=== PATIENT | female | born 1985 | race Caucasian/White ===

== ENCOUNTER 2017-10-06 08:00 | Inpatient (IN) ==
[2017-10-06] MEDS ORDERED: Famotidine 20 MG/2 ML VIAL IVP PRN (09:28)
[2017-10-06] MEDS ORDERED: Ondansetron 4 MG/2 ML VIAL IVP PRN (09:28)
[2017-10-06] MEDS ORDERED: Metoclopramide 10 MG/2 ML VIAL IVP PRN (09:28)
[2017-10-06] MEDS ORDERED: Ringers Solution, Lactated 1,000 ML IVC SCH (09:30)
[2017-10-06] MEDS ORDERED: miSOPROStol 25 MCG TABLET PO PRN (09:36)
--- NOTE | 2017-10-06 09:43 | Anesthesia Evaluation PreOp ---
Date of Encounter: 10/06/17 Time of Encounter: 09:41 - Past History Planned Operation: sunil Cardiac History: Denies any Significant Hx Pulmonary History: Smoker (1/2 pack per day) EMERGENCY SERVICES PROFESSIONAL History: Denies Any Significant HX Other Medical History: Denies Any Significant HX, Other (history of drug abuse, clean for 3 years) Anesthesia History: No Prior Anesthetic Complications, Past Anesthesia : Yes () Alcohol Use: none Drug use: other Medications and Allergies Buprenorphine HCl/Naloxone HCl [Suboxone 8 mg-2 mg Sl Film] 12 mg SL DAILY 11/13 [History] Vit/FA 1 tab PO DAILY 11/14/14 [History] 3 Allergy/AdvReac Type Severity Reaction Status Date / Time No Known Allergies Allergy Verified 11/13/14 14:23 - Meds/Allergy Pre-op Review Medications Reviewed: Yes Allergies Reviewed: Yes Beta Blockers on Current Med List: No Anesthesia Exam O2 Sat Height 1.63 m Weight 118.5 kg Height: 64 Weight: 261 - HEENT Pupil (Motor): Pupils equal Mallampati: I Teeth: Normal Oral Opening: Greater than 3 - EMERGENCY SERVICES PROFESSIONAL LOC: Oriented EMERGENCY SERVICES PROFESSIONAL Motor: Normal RUE, Normal LUE, Normal RLE, Normal LLE, Normal Face EMERGENCY SERVICES PROFESSIONAL Sensory: Normal: RUE, LUE, RLE, LLE, Face - Cardiac Rhythm: Regular Murmur: None JVD: No Carotid Bruit: No - Pulmonary Breath Sounds: bilateral Clear Respiratory Effort: Symmetrical Anesthesia Assess/Plan ASA Score: 2 Modified [place] Scale for Level of Consciousness: Cooperative, oriented, and tranquil Anesthetic Plan: Regional Monitoring Plan: Standard Monitors
[2017-10-06] MEDS ORDERED: Penicillin G Potassium 5,000,000 UNIT in 0.9 % Sodium Chloride Mini Bag 100 ML IVPB ONE (09:59)
--- NOTE | 2017-10-06 10:10 | OB/GYN History & Physical ---
Date of Encounter: 10/06/17 Time of Encounter: 10:06 Assessment and Plan (1) 39 weeks gestation of Current visit: Yes Status: Acute Pt at 39 weeks EGA presents for induction of labor. Plan Cytotec and expect . (2) Narcotic addiction Current visit: Yes Status: Acute Will cont. Suboxone. (3) Hepatitis C Current visit: No Status: Chronic Qualifiers: Viral hepatitis chronicity: chronic Hepatic coma status: without hepatic coma Qualified Code(s): B18.2 - Chronic viral hepatitis C History of Present Illness Chief complaint: Here for induction HPI: Ms. Mcmanus is a 32 year old female female presents at 39 weeks EGA for induction of labor. Her has been complicated by narcotics addiction and she is on Suboxone. She also smokes. Past Med Surg Social Fam HX - Past Medical History Source: patient, old records reviewed Medical history: non-contributory, other Additional medical history: Polystitic ovary syndrome, anxiety, depression, previous suicide atempts, narcotics addiction Psychiatric history: anxiety, depression, prior suicide attempt, previous psychiatric hospitalization - Past Surgical History Surgical History: cholecystectomy, other Additional surgical history: U. hernia repair - Social History Smoking Status: Current every day smoker Packs per day: 1/2 Smokeless Tobacco Status: No Alcohol use: none Drug use: other - Family History Mother Living Status: Still Living Hx Family Cardiac Disorders: Yes Hx Family GI Disorders: Yes (Diverticulosis) Father Living Status: Cause of : 2008 Hx Family Cardiac Disorders: Yes (HTN) Hx Family Cancer: Yes Obstetrical History - Pregnancies : 3 Medications and Allergies Buprenorphine HCl/Naloxone HCl [Suboxone 8 mg-2 mg Sl Film] 12 mg SL DAILY 11/13 [History] Vit/FA 1 tab PO DAILY 11/14/14 [History] 3 Allergy/AdvReac Type Severity Reaction Status Date / Time No Known Allergies Allergy Verified 11/13/14 14:23 Exam - Constitutional Constitutional: well nourished, no acute distress - HEENT HEENT: EOMI, PERRL - Neck Neck exam: full ROM - Lungs Respiratory exam: CTAB - Cardiovascular Cardiovascular exam: RRR - Abdomen Abdomen: Present: gravid Results All other labs normal. - VTE Reasons for not Prescribing Prophylaxis: Treatment not Indicated - Low risk for VTE
[2017-10-06] MEDS ORDERED: Lidocaine -MPF 1% 2 ML VIAL ONE (10:26)
[2017-10-06 11:11] LABS: Basophils % 0.3 %; Eosinophils # 0.2 K/mcL (0.0-0.6); Eosinophils % 1.5 %; Hematocrit 38.4 % (35.3-44.9); Immature Granulocytes % 0.4 % (0-4); Lymphocytes # 3.7 K/mcL (0.6-4.6); Lymphocytes % 29.3 %; Mean Corpuscular HGB Conc 33.9 g/dL (31.6-35.5); Mean Corpuscular Hemoglobin 29.5 pg (28.0-33.3); Mean Corpuscular Volume 87.1 fL (83.0-100.0); Mean Platelet Volume 10.3 fL (9.4-12.4); Monocytes # 0.6 K/mcL (0.0-1.3); Monocytes % 4.5 %; Neutrophils # 8.1 K/mcL (1.6-8.9); Platelet Count 275 K/mcL (140-400); Red Blood Count 4.41 M/mcL (3.82-4.97); Red Cell Distribution Width 13.6 % (11.5-14.5)
[2017-10-06 11:20] LABS: Amphetamine Screen,Urine Negative ng/mL (Cutoff=1000); Barbiturate Screen,Urine Negative ng/mL (Cutoff=200); Benzodiazepines Screen,Urine Negative ng/mL (Cutoff=200); Cannabinoid Screen,Urine Negative ng/mL (Cutoff = 50); Cocaine Screen,Urine Negative ng/mL (Cutoff= 300); Opiate Screen,Urine Negative ng/mL (Cutoff=300); Phencyclidine Screen,Urine Negative ng/mL (Cutoff=25)
[2017-10-06] MEDS ORDERED: Penicillin G Potassium 2,500,000 UNIT in 0.9 % Sodium Chloride 100 ML IVPB SCH (14:00)
[2017-10-06] MEDS: Penicillin G Potassium 2,500,000 UNIT in 0.9 % Sodium Chloride 100 ML IVPB SCH ×2 (15:02→19:08)
[2017-10-06] MEDS ORDERED: *HR* FentaNYL (PF) 100 MCG/2 ML VIAL ONE ×2 (16:28→16:30)
[2017-10-06] MEDS ORDERED: *HR* Ropivacaine/PF 0.2% 20 ML VIAL ONE (16:28)
[2017-10-06] MEDS ORDERED: Epidural Premix (fent/bupiv) 110 ML EP ONE (16:28)
[2017-10-06] MEDS ORDERED: Lidocaine -MPF 1% 5 ML AMPUL ONE (16:30)
[2017-10-06] MEDS ORDERED: Bupivacaine-MPF 0.25% 10 ML VIAL ONE (16:30)
[2017-10-06] MEDS ORDERED: *HR* Ropivacaine/PF 0.2% 20 ML VIAL EP ONE (16:57)
[2017-10-06] MEDS ORDERED: EPHEDrine 50 MG/ML VIAL IVP PRN (16:57)
[2017-10-06] MEDS ORDERED: *HR* FentaNYL (PF) 100 MCG/2 ML VIAL EP ONE (16:57)
[2017-10-06] MEDS ORDERED: Epidural Premix (fent/bupiv) 110 ML EP SCH (17:00)
--- NOTE | 2017-10-06 17:01 | Anesthesia Procedures ---
Date of Encounter: 10/06/17 Time of Encounter: 16:59 Procedures: Anesthesia - Epidural/Spinal Patient ID/Chart reviewed: Yes Patient examined: Yes OB Eval: : 3 OB Eval: Hx Para: 1 OB Eval: Contractions: Non-stressed pattern Site Prep: Aseptic Technique, 0.5% Chlorhexidine/Alcohol Patient position: upright Local Anesthetic: Lidocaine 1% Amount of Local Anesthetic used: 3 Touhy Needle Gauge: 18 Touhy Needle Depth (cm): 7 Catheter Depth at Skin (cm): 14 Test Dose (1.5% Lido + Epi): Volume given (mls): 3 Test Dose Result: Negative Loading Dose: Fentanyl (mcg): 100 Loading Dose: Other: ropivicaine 0.2% 5cc Loading Dose Administered: Thru Touhy Needle Infusion Med: 0.125% Bupivacaine w/ 2 mcg/ml Fentanyl Infusion Rate (mls/hr): [address]: Tegaderm Interspace Used: L3-L4 Loss of Resistance (IGOR): Yes Blood: No CSF: No Paresthesia: No
[2017-10-06] MEDS ORDERED: Oxytocin 20 units/ LR 1000 mL 20 UNIT/1,000 ML BAG IVC SCH ×2 (19:00→23:01)
--- NOTE | 2017-10-06 20:05 | OB/GYN Procedure Note ---
Delivery - Delivery Date: 10/06/17 Provider: Eleazar Garcia Intrapartum events: none Delivery induction: misoprostol Delivery monitor: internal FHT, internal uterine Anesthesia: epidural Quantitated Blood Loss: 100 - (s) A Delivery Date: 10/06/17 Infant Delivery Time: 19:48 Presentation: vertex Position: LUIS Route of delivery: Gender: Male Viability: Viable Pounds: 8 Ounces: 4 at 1 minute: 9 at 5 mins: 9 Placenta: spontaneous Cord: 3 umbilical vessels - Repair Episiotomy: none Laceration Description: None - Complications Delivery complications: none - Disposition Mom disposition: stable in LDR Constantia disposition: stable in LDR - Comments Comments: Pt s/p of liveborn male infant without complications. No laceration. Spontaneous delivery of normal placenta with 3 v.c. Mother and recovered in LDR.
[2017-10-06] MEDS ORDERED: Acetaminophen 325 MG TABLET PO PRN (23:01)
[2017-10-06] MEDS ORDERED: Measles/Mumps/Rubella Vacc 0.5 ML VIAL SQ PRN (23:01)
[2017-10-06] MEDS ORDERED: Rho Immune Globulin 1,500 UNIT SYRINGE IM PRN (23:01)
[2017-10-07 05:05] LABS: Basophils % 0.3 %; Eosinophils # 0.2 K/mcL (0.0-0.6); Eosinophils % 1.4 %; Hematocrit 34.3 % (35.3-44.9); Hemoglobin 11.8 g/dL (11.5-15.4); Immature Granulocytes % 0.6 % (0-4); Lymphocytes # 3.4 K/mcL (0.6-4.6); Lymphocytes % 25.3 %; Mean Corpuscular HGB Conc 34.4 g/dL (31.6-35.5); Mean Corpuscular Hemoglobin 29.8 pg (28.0-33.3); Mean Corpuscular Volume 86.6 fL (83.0-100.0); Mean Platelet Volume 11.2 fL (9.4-12.4); Monocytes # 0.6 K/mcL (0.0-1.3); Monocytes % 4.2 %; Neutrophils # 9.3 K/mcL (1.6-8.9); Platelet Count 243 K/mcL (140-400); Red Blood Count 3.96 M/mcL (3.82-4.97); Red Cell Distribution Width 13.5 % (11.5-14.5); Segmented Neutrophils % 68.2 %
--- NOTE | 2017-10-07 07:48 | OB/GYN Progress Note ---
Date of Encounter: 10/07/17 Time of Encounter: 07:45 - Assessment and Plan (1) Status post vaginal delivery Current Visit: Yes Status: Acute (2) Family planning advice Current Visit: Yes Status: Acute Patient will be kept nothing by mouth for bilateral tubal ligation this morning Subjective - Subjective Interval history: Patient states doing well still wanting a tubal ligation minimal pain minimal bleeding. The risks and benefits of the tubal ligation was explained to patient with failure rate of 5-8 per thousand with increased risk of ectopic if was to occur Objective - Latest Vital Signs Latest vital signs: Vital Signs Temp Pulse Resp BP Pulse Ox 10/07/17 07:38 97.6 F 64 18 118/73 10/07/17 06:41 97.8 F 57 14 128/63 97 10/07/17 00:30 97.9 F 67 14 128/73 99 10/06/17 23:30 98 F 61 14 111/66 98 10/06/17 22:30 98.1 F 66 14 101/59 98 Intake and Output 10/06/17 10/06/17 10/07/17 15:59 23:59 07:59 Intake Total 100 / 100 Output Total 400 / 400 Balance -300 / -300 Intake: IV Fluids 100 / 100 Pfizerpen 2,500,000 UNIT In 0.9 100 / 100 % Sodium Chloride 100 ML @ 100 mls/hr IVPB Q4H [facility] Rx#: [id number] Output: Urine 400 / 400 Other: Weight 118.5 kg 116 kg - Exam Lungs: bilateral: normal Chest: Normal S1, Normal S2 Extremities: Present: normal Abdomen: Present: normal appearance, other (Mildly obese) Uterus: Present: normal, firm Uterus Position: 2 Fingers Below Umbilicus - Labs Labs: Laboratory Results - last 24 hr 10/06/17 10/06/17 10/07/17 09:32 10:54 04:01 WBC 12.6 H 13.6 H RBC 4.41 3.96 Hgb 13.0 11.8 Hct 38.4 34.3 L MCV 87.1 86.6 MCH 29.5 29.8 MCHC 33.9 34.4 RDW 13.6 13.5 Plt Count 275 243 MPV 10.3 11.2 Immature Gran % 0.4 0.6 Seg Neutrophils % 64.0 68.2 Lymphocytes % 29.3 25.3 Monocytes % 4.5 4.2 Eosinophils % 1.5 1.4 Basophils % 0.3 0.3 Neutrophils # 8.1 9.3 H Lymphocytes # 3.7 3.4 Monocytes # 0.6 0.6 Eosinophils # 0.2 0.2 Basophils # 0.0 0.0 Urine Opiates Screen Negative Ur Barbiturates Screen Negative Ur Phencyclidine Scrn Negative Ur Amphetamines Screen Negative U Benzodiazepines Scrn Negative Urine Cocaine Screen Negative U Marijuana (THC) Screen Negative Ur Drug Screen Interp See Below
[2017-10-07] MEDS ORDERED: Prenatal Vit/FA 1 EACH TABLET PO SCH (09:00)
[2017-10-07] MEDS ORDERED: Ringers Solution, Lactated 1,000 ML ONE (11:45)
--- NOTE | 2017-10-07 11:57 | Anesthesia Evaluation PreOp ---
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: Denies Any Significant HX Other Medical History: Denies Any Significant HX Anesthesia History: No Prior Anesthetic Complications, Past Anesthesia Alcohol Use: none Drug use: other Medications and Allergies Buprenorphine HCl/Naloxone HCl [Suboxone 8 mg-2 mg Sl Film] 12 mg SL DAILY 11/13 [History] Vit/FA 1 tab PO DAILY 11/14/14 [History] 3 Allergy/AdvReac Type Severity Reaction Status Date / Time No Known Allergies Allergy Verified 11/13/14 14:23 - Meds/Allergy Pre-op Review Medications Reviewed: Yes Allergies Reviewed: Yes Beta Blockers on Current Med List: No Anesthesia Results - Labs 10/07/17 04:01 Anesthesia Exam Vital Signs/O2 Sat, Most Current Temp Pulse Resp BP Pulse Ox 97.6 F 64 18 118/73 97 10/07/17 07:38 10/07/17 07:38 10/07/17 07:38 10/07/17 07:38 10/07/17 06:41 Height: 5'4''/1.63m Weight: 255 lbs/116 kg NPO (# of Hours): 8 Pain Scale: 0 Pain Scale Used: Numeric (1 - 10) - HEENT Pupil (Motor): EOMI Mallampati: II Teeth: Normal Oral Opening: Greater than 3 - JAI [employer] PLAYER LOC: Oriented JAI [employer] PLAYER Motor: Normal RUE, Normal LUE, Normal RLE, Normal LLE, Normal Face [employer] Sensory: Normal: RUE, LUE, RLE, LLE, Face - Cardiac Rhythm: Regular Murmur: None - Pulmonary Breath Sounds: bilateral Clear Respiratory Effort: Symmetrical Anesthesia Assess/Plan ASA Score: 2 Modified [place] Scale for Level of Consciousness: Cooperative, oriented, and tranquil Anesthetic Plan: General Monitoring Plan: Standard Monitors Recovery Plan: PACU
[2017-10-07] MEDS ORDERED: *HR* HYDROmorphone 2 MG TABLET PO PRN (12:33)
[2017-10-07] MEDS ORDERED: *HR* OxyCODONE Immed Rel 5 MG TABLET PO PRN (12:33)
[2017-10-07] MEDS ORDERED: *HR* FentaNYL (PF) 100 MCG/2 ML VIAL ONE (12:33)
[2017-10-07] MEDS ORDERED: *HR* Promethazine 25 MG/ML VIAL IVP PRN (12:33)
[2017-10-07] MEDS ORDERED: *HR* Midazolam HCl 2 MG/2 ML VIAL ONE ×2 (12:33)
[2017-10-07] MEDS ORDERED: *HR* Propofol 200 MG/20 ML VIAL IVP ONE ×2 (12:33)
[2017-10-07] MEDS ORDERED: Acetaminophen IV 1,000 MG/100 ML INFUS..BTL IVPB ONE (12:33)
[2017-10-07] MEDS ORDERED: Ondansetron 4 MG/2 ML VIAL IVP PRN ×2 (12:33→13:04)
[2017-10-07] MEDS ORDERED: Lidocaine -MPF 2% 5 ML VIAL ONE (12:33)
[2017-10-07] MEDS ORDERED: Ondansetron 4 MG/2 ML VIAL ONE (12:47)
[2017-10-07] MEDS ORDERED: Ketorolac 30 MG/ML VIAL ONE (12:48)
--- NOTE | 2017-10-07 13:05 | Operative Note ---
Date of procedure: 10/07/17 Pre-op diagnosis: Status post vaginal delivery, desires sterilization Post-op diagnosis: same (With umbilical obstruction) Procedure: Attempted bilateral partial salpingectomy with inability to get through the peritoneum due to foreign body Complications: Umbilical obstruction from what we eventually found out to be graft material attached to the peritoneum Anesthesia: DOMINGA Surgeon: Ever Burton Was there an secretary administrative assistant present: No Estimated blood loss (cc): 30 Specimen: None Condition: stable Disposition: other (Labor and delivery recovery room) Procedure in Detail: Patient is a 32-year-old female status post vaginal delivery who desired tubal ligation patient states she has multiple children and does not want to have anymore patient has a past history of IV drug use and is a very difficult stick just wanted the tubal done while in the hospital we did discuss the risks and benefits of the tubal with a failure rate of 5-8 per thousand with increased risk of ectopic if was to occur. We did offer her a laparoscopic tubal due to her size but she wanted us to attempt it well and hospital. Procedure: Patient was taken the operating room where general anesthesia was found be adequate. She was placed in the dorsal supine position prepped and draped in usual fashion. Timeout was then obtained. A small infraumbilical incision was made carried down to the underlying tissue to the fascia was identified. The fascia was grasped tented up and entered sharply. This was extended laterally with the Cisneros scissors 2 [place] retractors placed through the incision and the parietal peritoneum was identified. As we grasped the peritoneum we noted that it would not tent up like usual after palpating this multiple times it felt heart to palpation and I could not identify what the problem was. We attempted multiple times there was something hard around the peritoneum and we did some investigating and identified in her old records that patient had had a umbilical hernia repair with graft which was not mention to us prior to the surgery. At this point no further attempt was made to try and get through this location and the procedure was terminated the fascia was then closed using 0 Vicryl in a running stitch and the skin was closed using a 4-0 Vicryl in subcuticular manner. All needles lap sponge counts were correct 3 she did receive preoperative antibiotics. Patient will need to come back in 6 weeks for a laparoscopic tubal ligation. Patient was taken back to the floor to recover and will continue on her home Suboxone.
--- NOTE | 2017-10-07 14:08 | Anesthesia Evaluation Post Op ---
Date of Encounter: 10/07/17 Time of Encounter: 14:07 - Vital Signs Vital Signs: Vital Signs/O2 Sat, Most Current Temp Pulse Resp BP Pulse Ox 98 F 56 16 96/50 97 10/07/17 13:47 10/07/17 13:47 10/07/17 13:47 10/07/17 13:47 10/07/17 13:47 - Lungs Lungs: Clear Ascult./Percussion - Airway Airway: Non-obstructed - Cardiovascular Regular Rate - Mental Status Mental Status: Alert & Oriented, Answers Appropriately - Pain Pain Scale: 3 Pain Scale used: [place] (Faces) - Nausea Vomiting Nausea Vomiting: Not Present - Hydration Hydration: NPO, Has not voided - Discharge PostOp Status: Transfer Patient to floor
[2017-10-07] MEDS ORDERED: Rho Immune Globulin 1,500 UNIT SYRINGE IM ONE (17:50)
[2017-10-07] MEDS: Acetaminophen 325 MG TABLET PO PRN (18:24)
[2017-10-08 07:53] VITALS: BP 123/70
--- NOTE | 2017-10-08 08:13 | Discharge Summary ---
Date of Encounter: 10/08/17 Time of Encounter: 08:10 - Discharge Diagnosis (1) Status post vaginal delivery Priority: Primary Status: Acute Comments: Continue routine care discharge home today follow up with Dr. Garcia in 4-6 weeks - Discharge Medications Prescriptions: Ibuprofen [Motrin] 600 mg PO Q6HR PRN #60 tab PRN Reason: pain Home Medications: Buprenorphine HCl/Naloxone HCl [Suboxone 8 mg-2 mg Sl Film] 12 mg SL DAILY 11/13 [History] Vit/FA 1 tab PO DAILY 11/14/14 [History] Ibuprofen [Motrin] 600 mg PO Q6HR PRN #60 tab 10/08/17 [Rx] Allergies/Adverse Reactions: 3 Allergy/AdvReac Type Severity Reaction Status Date / Time No Known Allergies Allergy Verified 11/13/14 14:23 Data Procedures and tests throughout hospitalization: Laboratory Tests 10/06/17 10/06/17 10/06/17 09:32 10:54 21:18 WBC 12.6 H RBC 4.41 Hgb 13.0 Hct 38.4 MCV 87.1 MCH 29.5 MCHC 33.9 RDW 13.6 Plt Count 275 MPV 10.3 Immature Gran % 0.4 Seg Neutrophils % 64.0 Lymphocytes % 29.3 Monocytes % 4.5 Eosinophils % 1.5 Basophils % 0.3 Neutrophils # 8.1 Lymphocytes # 3.7 Monocytes # 0.6 Eosinophils # 0.2 Basophils # 0.0 Urine Opiates Screen Negative Ur Barbiturates Screen Negative Ur Phencyclidine Scrn Negative Ur Amphetamines Screen Negative U Benzodiazepines Scrn Negative Urine Cocaine Screen Negative U Marijuana (THC) Screen Negative Ur Drug Screen Interp See Below Screen NEGATIVE Baby's Blood Type O RH POSITIVE Mother's Blood Type O RH NEGATIVE Rhogam Indicated YES Rhogam Req for Mother 1 10/07/17 04:01 WBC 13.6 H RBC 3.96 Hgb 11.8 Hct 34.3 L MCV 86.6 MCH 29.8 MCHC 34.4 RDW 13.5 Plt Count 243 MPV 11.2 Immature Gran % 0.6 Seg Neutrophils % 68.2 Lymphocytes % 25.3 Monocytes % 4.2 Eosinophils % 1.4 Basophils % 0.3 Neutrophils # 9.3 H Lymphocytes # 3.4 Monocytes # 0.6 Eosinophils # 0.2 Basophils # 0.0 Urine Opiates Screen Ur Barbiturates Screen Ur Phencyclidine Scrn Ur Amphetamines Screen U Benzodiazepines Scrn Urine Cocaine Screen U Marijuana (THC) Screen Ur Drug Screen Interp Screen Baby's Blood Type Mother's Blood Type Rhogam Indicated Rhogam Req for Mother Labs on day of discharge: Labs from last 24 hours 10/06/17 21:18 Screen NEGATIVE Baby's Blood Type O RH POSITIVE Mother's Blood Type O RH NEGATIVE Rhogam Indicated YES Rhogam Req for Mother 1 Date of admission: 10/06/17 08:30 Primary care physician: Roslyn Mendoza Consults: 10/06/17 23:01 Consult to Financial Reporting Advisor [CONS] Routine Reason for SW Consult: narcotics addiction Discharging clinician: Gricel Garrett Anticipated date of discharge: 10/08/17 - Patient Status Disposition: Home, Self-Care Condition: Good Functional capacity at discharge: independent ambulation - Discharge Instructions Follow Up With: Yessy Gongora CNP [Primary Care Provider] - Eleazar Garcia MD [Partnered Physician] - - Diet and Activity Activity: increase activity as tolerated Diet: regular diet Hospital Course Delivery: Episiotomy: none Laceration: none Other procedures: none complications: none Discharge diagnosis: IUP at term delivered baby: male (bottle feeding) Time Attestation: Total time spent providing and/or coordinating discharge services: Time Spent: Less than 30 minutes Exam - Constitutional Vitals: Temp Pulse Resp BP Pulse Ox 97.7 F 65 16 123/70 98 10/08/17 07:52 10/08/17 07:52 10/08/17 07:52 10/08/17 07:52 10/08/17 07:52 General appearance IM: A&O X 3, pleasant, answers questions appropriately - Respiratory Respiratory exam: Present: CTAB - Cardiovascular Cardiovascular exam IM: Present: RRR, +S1, +S2 - GI/Abdominal GI/Abdominal exam IM: normal bowel sounds - Uterine Tone: Firm Uterus Position: 1 Finger Below Umbilicus, Midline - Extremities Exam Extremities exam IM: Present: full ROM, normal capillary refill, normal inspection - Neurological Exam Neurological exam: alert, oriented X3, reflexes normal
[2017-10-08] MEDS: Acetaminophen 325 MG TABLET PO PRN (08:35)
[2017-10-08] MEDS ORDERED: BUPRENORPHINE SL SCH (09:00)
[2017-10-08] MEDS ORDERED: NALOXONE SL SCH (09:00)
[2017-10-08] MEDS ORDERED: Prenatal Vit/FA 1 EACH TABLET PO SCH (09:00)
== END 2017-10-08 11:30 | disposition home or self-care (01) | DRG 560 ==
LOC: 1NENULAB 08:30 → 1NENUOBS 22:39
PROVIDERS: ADMIT Obstetrics & Gynecology; ATTEND Obstetrics & Gynecology

== ENCOUNTER 2018-10-28 14:00 | Inpatient (IN) ==
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
[2018-10-28 14:43] LABS: Bilirubin,Urine Negative (Negative); Blood,Urine Negative (Negative); Clarity,Urine Turbid (Clear); Color,Urine Dark Yellow (Yellow); Glucose,Urine (UA) Normal (Normal); Ketones,Urine Negative (Negative); Leukocyte Esterase,Urine Moderate (Negative); Nitrite,Urine Negative (Negative); PH,Urine 5.5 pH Units (5.0-8.0); Protein,Urine Trace mg/dL (Neg-Trace); Specific Gravity,Urine 1.026 (1.010-1.025); Urobilinogen,Urine Normal (Normal)
[2018-10-28 14:47] LABS: Bacteria,Urine Many per hpf (None-Few); RBC,Urine 0-3 per hpf (0-3); Squamous Epithelial Cell,Urine Many per lpf (None-Few); WBC,Urine 30-50 per hpf (0-3)
--- NOTE | 2018-10-28 14:51 | Emergency Department Note ---
Disposition Clinical Impression: Suicidal ideation Disposition: Still a Patient Forms: ED Satisfaction Letter Time of Disposition: 14:51 General Adult HPI - General Chief complaint: ED Psychiatric Symptoms Stated complaint: SI Time Seen by Provider: 10/28/18 14:15 Source: patient Mode of arrival: ambulatory Limitations: no limitations Nursing Notes Reviewed: Yes Vital Signs Reviewed: Yes - History of Present Illness HPI Narrative: Attestation note: Patient was seen with the emergency medicine resident/nurse practitioner/physician traffic assistant/transitional resident/medical student: Dr. BRENT LAYNE. I was present for the significant portions of the performance and interpretation of procedures and EKGs. I have personally performed a face to face evaluation on this patient. I have reviewed and agree with history and physical examination patient management and disposition. Female history of depression and suicidal ideations by EMS for suicidal gesture patient started taking a vacuum cord and strangulate herself which was unsuccessful there is no external ligature henao noted physical examination is benign patient had a pink slip executed and is in chart patient will undergo medical clearance and evaluation by mental health services. Disposition pending Pain Scale: 0 - Related Data Home Medications Medication Instructions Recorded Confirmed Buprenorphine HCl/Naloxone HCl 12 mg SL DAILY 11/13/14 10/06/17 [Suboxone 8 mg-2 mg Sl Film] Vit/FA 1 tab PO DAILY 11/14/14 10/06/17 Previous Rx's Medication Instructions Recorded Ibuprofen [Motrin] 600 mg PO Q6HR PRN #60 tab 10/08/17 Allergies Allergy/AdvReac Type Severity Reaction Status Date / Time Amoxicillin AdvReac Hives Verified 10/28/18 14:02 Past Medical History - Past Medical History Medical history: Reports: non-contributory, other Surgical history: Reports: cholecystectomy, other Psychiatric history: Reports: anxiety, depression, prior suicide attempt, previous psychiatric hospitalization [employer] INS[employer] history: Reports: polycystic ovary syndrome - Social History Smoking Status: Current every day smoker Smokeless Tobacco Status: No Alcohol use: Reports: none Drug use: Reports: other Physical Exam - General Limitations: no limitations General appearance: alert, in no apparent distress Course Vital Signs Temperature 98.0 F 10/28/18 14:00 Pulse Rate 94 10/28/18 14:00 Respiratory Rate 16 10/28/18 14:00 Blood Pressure 164/113 10/28/18 14:00 O2 Sat by Pulse Oximetry 94 10/28/18 14:00 Temperature 98.0 F 10/28/18 14:08 Pulse Rate 94 10/28/18 14:08 Respiratory Rate 16 10/28/18 14:08 Blood Pressure 164/113 10/28/18 14:08 O2 Sat by Pulse Oximetry 94 10/28/18 14:08 Oxygen Delivery Oxygen Delivery Room Air
[2018-10-28 15:35] LABS: Acetaminophen < 10 mcg/mL (10-20); BUN/Creatinine Ratio 11 (6-26); Blood Urea Nitrogen 10 mg/dL (6-20); Calcium 8.9 mg/dL (8.6-10.3); Carbon Dioxide 22 mEq/L (23-29); Chloride 106 mEq/L (98-107); Ethanol < 10 mg/dL (Less than 10); Glucose 129 mg/dL (70-105); Osmolality,Calculated 281 (280-300); Potassium 4.5 mEq/L (3.5-5.1); Salicylate < 2.5 mg/dL (15.0-30.0); Sodium 135 mEq/L (136-145); eGFR For African Americans > 60 (> 60); eGFR For Non-African Americans > 60 (> 60)
[2018-10-28 16:13] LABS: Basophils # 0.1 K/mcL (0.0-0.2); Basophils % 0.5 %; Eosinophils # 0.4 K/mcL (0.0-0.6); Eosinophils % 3.5 %; Hematocrit 44.9 % (35.3-44.9); Hemoglobin 15.1 g/dL (11.5-15.4); Immature Granulocytes % 1.1 % (0-4); Lymphocytes # 2.9 K/mcL (0.6-4.6); Lymphocytes % 28.7 %; Mean Corpuscular HGB Conc 33.6 g/dL (31.6-35.5); Mean Corpuscular Hemoglobin 29.5 pg (28.0-33.3); Mean Corpuscular Volume 87.7 fL (83.0-100.0); Mean Platelet Volume 9.9 fL (9.4-12.4); Monocytes # 0.4 K/mcL (0.0-1.3); Monocytes % 4.1 %; Neutrophils # 6.2 K/mcL (1.6-8.9); Nucleated Red Blood Cells 0.3 /100 WBC (0); Platelet Count 261 K/mcL (140-400); Red Blood Count 5.12 M/mcL (3.82-4.97); Red Cell Distribution Width 14.2 % (11.5-14.5); Segmented Neutrophils % 62.1 %
[2018-10-28 17:42] LABS: Amphetamine Screen,Urine Negative ng/mL (Cutoff=1000); Barbiturate Screen,Urine Negative ng/mL (Cutoff=200); Benzodiazepines Screen,Urine Negative ng/mL (Cutoff=200); Cannabinoid Screen,Urine Negative ng/mL (Cutoff = 50); Cocaine Screen,Urine Negative ng/mL (Cutoff= 300); Opiate Screen,Urine Negative ng/mL (Cutoff=300); Phencyclidine Screen,Urine Negative ng/mL (Cutoff=25)
[2018-10-28] MEDS ORDERED: *HR* LORazepam 2 MG/ML VIAL IM PRN (18:36)
[2018-10-28] MEDS ORDERED: *HR* LORazepam 1 MG TABLET PO PRN (18:36)
[2018-10-28] MEDS ORDERED: MOM Conc 10 ML UD.LIQ PO PRN (18:36)
[2018-10-28] MEDS ORDERED: traZODone 50 MG TABLET PO PRN (18:36)
[2018-10-28] MEDS ORDERED: hydrOXYzine pamoate 25 MG CAPSULE PO PRN (18:36)
[2018-10-28] MEDS ORDERED: Mag Hydrox/Al Hydrox/Simeth 30 ML UDC PO PRN (18:36)
[2018-10-28] MEDS ORDERED: Haloperidol Lactate 5 MG/ML VIAL IM PRN (18:36)
[2018-10-28] MEDS ORDERED: Acetaminophen 325 MG TABLET PO PRN (18:36)
[2018-10-28] MEDS ORDERED: Ibuprofen 400 MG TABLET PO PRN (18:36)
[2018-10-29] MEDS: Nicotine 21 MG PATCH.TD24 TD SCH (09:20)
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
[2018-10-29] MEDS: *HR* Buprenorphine HCl 8 MG TAB.SUBL SL SCH ×2 (11:17→20:52)
[2018-10-29 11:27] LABS: Estimated Average Glucose 137 mg/dl
[2018-10-29 12:53] LABS: Chol/HDL Ratio 5.9 (0-4.9); Thyroid Stimulating Hormone 2.047 mcIU/mL (0.340-5.600)
[2018-10-30] MEDS: *HR* Buprenorphine HCl 8 MG TAB.SUBL SL SCH (08:34)
[2018-10-30] MEDS: Nicotine 21 MG PATCH.TD24 TD SCH (08:34)
[2018-10-30 09:22] VITALS: BP 136/83
--- NOTE | 2018-10-30 09:37 | Discharge Summary ---
Date of Encounter: 10/30/18 Time of Encounter: 09:35 Diagnosis - Discharge Diagnosis (1) Adjustment disorder Status: Acute Qualifiers: Adjustment disorder type: with mixed anxiety and depressed mood Qualified Code(s): F43.23 - Adjustment disorder with mixed anxiety and depressed mood (2) Family planning advice Status: Acute Medications - Discharge Medications Prescriptions: traZODone [TraZODone] 50 mg PO HS PRN #15 tablet PRN Reason: Insomnia hydrOXYzine pamoate [Vistaril] 25 mg PO TID PRN #45 capsule PRN Reason: Anxiety Sertraline [Zoloft] 50 mg PO DAILY #15 tablet Buprenorphine HCl 8 mg PO BID 10/29/18 [History] Meclizine [Antivert] 12.5 mg PO Q12H PRN 10/29/18 [History] Ondansetron ODT [Zofran ODT] 4 mg PO Q8H PRN 10/29/18 [History] Sertraline [Zoloft] 50 mg PO DAILY #15 tablet 10/30/18 [Rx] hydrOXYzine pamoate [Vistaril] 25 mg PO TID PRN #45 capsule 10/30/18 [Rx] traZODone [TraZODone] 50 mg PO HS PRN #15 tablet 10/30/18 [Rx] Allergy/AdvReac Type Severity Reaction Status Date / Time Amoxicillin AdvReac Hives Verified 10/28/18 14:02 Results Procedures and tests throughout hospitalization: Completed Lab Orders Category Date Time Status Acetaminophen Stat Lab 10/28/18 14:54 Completed Basic Metabolic Panel Stat Lab 10/28/18 14:54 Completed Complete Blood Count [HEME] Stat Lab 10/28/18 15:24 Completed Ethanol Stat Lab 10/28/18 14:54 Completed Hgb A1C Routine Lab 10/29/18 11:08 Completed Lipid Panel Routine Lab 10/29/18 11:08 Completed Test Result, Urine [URIN] Stat Lab 10/28/18 14:29 Completed Salicylate Stat Lab 10/28/18 14:54 Completed Thyroid Stimulating Hormone Routine Lab 10/29/18 11:08 Completed Treponema Pallidum Ab Routine Lab 10/29/18 11:08 Completed Urinalysis Reflex Cult & Micro [URIN] Stat Lab 10/28/18 14:23 Completed Urine tox screen [Drug Screen, Urine] [UCHEM] Stat Lab 10/28/18 14:23 Completed Completed Microbiology Orders Category Date Time Status Culture,Urine [RM] Stat Lab 10/28/18 14:23 Completed Provider Date of admission: 10/30/18 06:52 Primary care physician: PCP NONE Discharging clinician: Zunilda Hart Psychiatry Exam - Constitutional Vitals: Temp Pulse Resp BP Pulse Ox 98 F 88 16 136/83 97 10/30/18 09:00 10/30/18 09:00 10/30/18 09:00 10/30/18 09:00 10/30/18 09:00 General appearance: age & developmentally appropriate, well-groomed, well- nourished - Musculoskeletal Gait: normal Station: relaxed Strength & Tone: normal for patient - Psychiatric Patient Orientation: Yes Person, Yes Time, Yes Place, Yes Circumstance Level of alertness: Alert Behavior: calm, cooperative Psychomotor activity: Normal Eye Contact: Maintains Eye Contact Mood Description: Euthymic/stable Patient description of mood: good Affect description: congruent with mood, full range Speech Volume: Normal Speech pattern: normal rate, normal rhythm, normal tone, fluent, spontaneous Language & Vocabulary: consistent with education Thought Process: Linear, Goal Oriented Thought Content: No Suicidal ideation, No Homicidal ideation, No Overt delusions Perceptual Disturbances: No Auditory hallucinations, No Visual hallucinations Attention Span Ability: Capable of Focused Attention Memory Description: Grossly Intact Patient Reliability: Reliable Historian Fund of knowledge: Yes abstraction ability, Yes aware of current events Intelligence Estimate: Average Judgment: Good Insight: Full Hospital Course Hospital course: Ms. Mcmanus is a 33 year old female with a history of depression who was admitted due to depression and suicidal ideations in the context of issues with her . She was started on ZOloft for her depression. Patient was educated of diagnosis and the risk-benefit side effects of this alternative treatment options and was monitored for responsiveness and side effects. Mood anxiety sleep and appetite interest improved as did future orientation. Self-harm thoughts subsided, thinking cleared, psychosis resolved, and mood stabilized. Patient was able to attend both individual and group therapy sessions as well as meet with the psychiatrist daily and urged to discuss any medication or treatment issues or other concerns. The patient was educated primarily by verbal means about their diagnosis and manifestations in their life. The option for treatment including group and individual therapy programming was offered to the patient in addition to the use of medications with all their potential risks, benefits, and side effects as well as the risks of not taking medication and non-adhereance were discussed with the patient at length. The patient was given the opportunity to ask questions and was noted to participate in the treatment in the planning process. The patient felt ready and eager to be discharged from the inpatient psychiatric unit to continue on with treatment as an outpatient. The patient agreed that is they were safe for this disposition. The patient was considered to be able to participate in informed consent and decision making with respect to medical, legal, and financial issues of the time of discharge. At the time of discharge the patient adamantly denied any concerns for lethality including suicidal or homicidal thoughts ideations or plans and was future oriented toward ongoing mental health care, medical follow- up and sobriety. Time spent discussing smoking cessation with patient: 3 to 10 minutes Does patient wish to continue nicotine replacement upon disc: No - Time Spent with Patient Total time spent providing and/or coordinating discharge services: 25 Less than 30 minutes Specific discharge activities: Interval history reviewed. Available labs reviewed . Psychotherapy provided. Patient had an opportunity to ask questions and address concerns. Patient was in agreement with the treatment plan. The risks benefits and side effects of medications were discussed with the patient, including alternatives and treatment. The patient was educated on the abstaining from any alcohol or illicit substances, following up with all scheduled appointments, and taking all medications as prescribed. Assessment and Plan - Patient/Caregiver Discharge Instructions Activity: resume usual activities as tolerated Diet: regular diet Additional Instructions: Continue current medications. Follow up with outpatient mental health. Encourage continued therapy in a group or individual setting. The patient was discharged to home. - Follow up Plan Follow up with: [facility] [Other] (Your counselor Krishan will contact you early next week to schedule your follow up appointments. You may call the office at the number above to follow up with appointments. ) Disposition: Home, Self-Care Quality - Multiple Antipsychotics Patient discharged on 2 or more antipsychotic medications: No Procedures - Procedures Procedures: Medication Management, Crisis Stabilization, Supportive Therapy, Group Therapy, Psychoeducational Therapy
== END 2018-10-30 15:30 | disposition home or self-care (01) | DRG 755 ==
LOC: EMEROOARM 14:00 → INTOOBSV 16:55 → 1ANU 16:55
PROVIDERS: ADMIT Psychiatry & Neurology Psychiatry; ATTEND Psychiatry & Neurology Psychiatry